=== PATIENT | male | born 1995 | race African-American/Black ===

== ENCOUNTER 2020-11-07 15:44 | Emergency (ER) | payer OTHER, SELFPAY ==
[2020-11-07 15:50] VITALS: BP 112/86; BP 120/68; PULSE 79; PULSE 88; RESP 18; TEMP 37; O2SAT 100; O2SAT 99; BMI 30.9
--- NOTE | 2020-11-07 16:32 | ED.ANIMALBIT ---
HPI - Animal Bite General Chief Complaint: Medical Clearance Stated Complaint: dog bite Time Seen by Provider: 11/07/20 16:31 Source: patient Mode of arrival: ambulatory Limitations: no limitations History of Present Illness HPI narrative: states dog is UTD on rabies MD complaint: animal bite Onset (ago): hour(s) (1) Animal: dog Description of animal: household pet and immunizations UTD Mechanism: bite Location - Extremities: right: lower leg Pain description: dull Context: unprovoked Associated symptoms: none Treatments prior to arrival: wound dressing(s) Related Data Previous Rx's Medication Instructions Recorded amoxicillin 875 mg-potassium 1 tab PO BID #14 tab 11/07/20 clavulanate 125 mg tablet (Augmentin) Allergies Allergy/AdvReac Type Severity Reaction Status Date / Time No Known Allergies Allergy Verified 11/07/20 15:57 Review of Systems Review of Systems: Constitutional : No Fever, No Chills, Cardiovascular : No Chest Pain, No SOB Respiratory : No Dyspnea Gastrointestinal : No abdominal pain Musculoskeletal : No Joint Swelling Skin : No rash, positive skin abrasions Neuro : No Weakness, No Numbness Psych : No SI/HI PMFSH Past Medical History Attestation statement: The following information was validated with the patient. Medical History Diabetes High cholesterol Surgical History (Updated 11/07/20 @ 15:56 by Soumya Logan) No history of previous surgery Social History Social History (Updated 11/07/20 @ 16:47 by Reyna De La O DO) Patient Tobacco Use Status: Never used Tobacco Physical Exam Vital Signs: Vital Signs: Last Vital Signs Temp 98.6 F 11/07/20 15:50 Pulse 88 11/07/20 15:50 Resp 18 11/07/20 15:50 BP 120/68 11/07/20 15:50 Pulse Ox 100 11/07/20 15:50 Body Mass Index 30.9 Appearance: Alert. Oriented X3. No acute distress. Eyes: Pupils equal, round and reactive to light. ENT: Pharynx normal. Neck: Normal inspection. Neck supple. CVS: Normal heart rate and rhythm. Pulses normal. Respiratory: No respiratory distress. Breath sounds normal. Abdomen: Soft and nontender. Skin: Skin warm and dry. Normal skin color. R lower lateral brown two superficial abrasions noted no puncture wounds, very superficial Extremities: No lower extremity edema. No calf ttp Neuro: Oriented X 3. No motor deficit. No sensory deficit. MDM - Animal Bite MDM Narrative Medical decision making narrative: 25 yo male with DM here with dog bite to right lower leg, states the dog was up to date on rabies. At this time will give tetanus shot and start on oral antibiotics Discharge Plan Discharge Clinical Impression: Dog bite Qualifiers: Encounter type: initial encounter Qualified Code(s): W54.0XXA - Bitten by dog, initial encounter Patient Disposition: Home, Self-Care Instructions: Animal Bite (ED) Additional Instructions: return to ED for any worsening symptoms or concerns Prescriptions: New amoxicillin-pot clavulanate [Augmentin] 875-125 mg tablet 1 tab PO BID Qty: 14 RF: 0 Stand Alone Forms: Work/School Release
[2020-11-07] MEDS: Diphth,Pertus(ACell),Tet Adult 0.5 ML SYRINGE IM (17:09)
[2020-11-07] MEDS: Amoxicillin/Potassium Clav 875 MG TABLET PO (17:09)
== END 2020-11-07 17:18 | disposition home or self-care (01) ==
LOC: HO.ED 17:12
PROVIDERS: Emergency Provider Emergency Medicine
DX: S80.871A Other superficial bite, right lower leg, initial encounter (principal); M79.604 Pain in right leg; W54.0XXA Bitten by dog, initial encounter; Y93.9 Activity, unspecified; Y92.009 Unspecified place in unspecified non-institutional (private) residence as the place of occurrence of the external cause; Y99.9 Unspecified external cause status; Z79.899 Other long term (current) drug therapy
CPT/HCPCS: 90471; 90715; 99283; 99284